=== PATIENT | male | born 1955 | race Caucasian/White ===

== ENCOUNTER 2018-02-13 12:40 | Emergency (ER) | payer OTHER ==
[~2018-02-13] VITALS: Ht 170.2 cm; Wt 56.7 kg
[2018-02-13 13:40] VITALS: BP 128/72
== END 2018-02-13 15:10 | disposition home or self-care (01) ==
LOC: ER 12:40
DX: K64.4 Residual hemorrhoidal skin tags (principal); F17.210 Nicotine dependence, cigarettes, uncomplicated

== ENCOUNTER 2018-08-30 17:53 | Emergency (ER) | payer SELFPAY ==
[~2018-08-30] VITALS: Ht 170.2 cm; Wt 61.2 kg
[2018-08-30 18:24] LABS: Basophils # (auto) 0.1 uL; Eosinophils # (auto) 0 uL; Eosinophils % (auto) 0.1 % (0.0-7.0); Monocytes # (auto) 0.6 uL; Neutrophils # (auto) 5.2 uL; Nucleated Red Blood Cells % 0.1 %; Red Cell Distribution Width 13.8 % (11.8-14.3); White Blood Cell 6.9 10^3/uL (4.4-10.8)
[2018-08-30 18:28] LABS: Basophils % (auto) 1.2 % (0.0-2.0); Hematocrit 46.6 % (41.0-53.0); Hemoglobin 16.1 g/dL (13.5-17.5); Lymphocytes % (auto) 15.1 % (10.0-50.0); Mean Corpuscular Hemoglobin 35.4 pg (28.0-32.0); Mean Corpuscular Hgb Conc. 34.6 g/dL (32.0-36.0); Mean Corpuscular Volume 102.5 fL (80.0-100.0); Monocytes % (auto) 8.1 % (0.0-12.0); Neutrophils % (auto) 75.5 % (37.0-80.0); Platelet Count (auto) 263 10^3/uL (140-450); Red Blood Cells 4.55 10^6/uL (4.5-5.90)
[2018-08-30 18:42] LABS: Chloride 100 mmol/L (98-107); Potassium 4.3 mmol/L (3.5-5.1); Sodium 136 mmol/L (136-145)
[2018-08-30 18:45] LABS: Alanine Aminotransferase 41 U/L (16-61); Albumin 4.1 g/dL (3.4-5.0); Anion Gap 17 (5-15); Aspartate Aminotransferase 50 U/L (15-37); BUN/Creatinine Ratio 13.6; Blood Urea Nitrogen 12 mg/dL (7-18); Calcium 8.4 mg/dL (8.5-10.1); Carbon Dioxide 19 mmol/L (21-32); GFR African American 113 mL/min; GFR Non-African American 94 mL/min; Glucose 92 mg/dL (74-106); Magnesium 2.3 mg/dL (1.6-2.6)
[2018-08-30 18:51] LABS: Alkaline Phosphatase 58 U/L (45-117); Bilirubin, Total 1.1 mg/dL (0.2-1.0); Total Protein 7.7 g/dL (6.4-8.2)
[2018-08-30] MEDS ORDERED: ONDANSETRON HCL 4 MG/2 ML VIAL IV ONE (23:15)
[2018-08-30] MEDS ORDERED: SODIUM CHLORIDE 0.9% 1,000 ML IV ONE (23:15)
[2018-08-31 03:01] VITALS: BP 130/67
[2018-08-31 03:36] LABS: Alcohol, Urine < 3.0 mg/dL (0-5); Amphetamine Screen, Urine NEGATIVE (NEGATIVE); Barbiturate Scree,Urine NEGATIVE (NEGATIVE); Benzodiazephine Screen, Urine NEGATIVE (NEGATIVE); Cannabinoid Screen, Urine NEGATIVE (NEGATIVE); Cocaine Screen, Urine NEGATIVE (NEGATIVE); Opiate Scree,Urine NEGATIVE (NEGATIVE); Phencyclidine Screen, Urine NEGATIVE (NEGATIVE)
[2018-08-31 03:40] LABS: Urine Bacteria FEW /hpf (None Seen); Urine Blood Negative /uL (Negative); Urine Hyaline Cast FEW /lpf (0 - 2); Urine Mucus FEW (None Seen); Urine Specific Gravity 1.029 (1.001-1.035); Urine WBC 1 /hpf (0 - 3)
== END 2018-08-31 04:20 | disposition home or self-care (01) ==
LOC: ER 17:53
DX: K29.00 Acute gastritis without bleeding (principal); F17.210 Nicotine dependence, cigarettes, uncomplicated
CPT/HCPCS: 36415; 74176; 80053; 80307; 81001; 83690; 83735; 84484; 85025; 93005; 96361; 96374; 99285; J2405; J7030

== ENCOUNTER 2020-03-30 06:52 | Inpatient (IN) | payer MEDICAID, OTHER ==
[~2020-03-30] VITALS: Ht 172.7 cm; Wt 59.5 kg
[2020-03-30] MEDS ORDERED: SODIUM CHLORIDE 0.9% 1,000 ML IV ONE (06:59)
[2020-03-30 07:27] LABS: Eosinophils # (auto) 0 10 ^3/uL (0-0.8); Hemoglobin 16.8 g/dL (13.5-17.5); Lymphocytes # (auto) 0.5 10 ^3/uL (0.4-5.4)
[2020-03-30 07:28] LABS: Basophils # (auto) 0.1 10 ^3/uL (0-0.2); Basophils % (auto) 0.9 % (0.0-2.0); Hematocrit 49.8 % (41.0-53.0); Lymphocytes % (auto) 3.8 % (10.0-50.0); Mean Corpuscular Hemoglobin 36.2 pg (28.0-32.0); Mean Corpuscular Hgb Conc. 33.8 g/dL (32.0-36.0); Mean Corpuscular Volume 107.3 fL (80.0-100.0); Monocytes # (auto) 0.9 10 ^3/uL (0-1.3); Monocytes % (auto) 7.5 % (0.0-12.0); Neutrophils # (auto) 10.8 10 ^3/uL (1.6-8.6); Neutrophils % (auto) 87.8 % (37.0-80.0); Nucleated Red Blood Cells % 0.1 %; Platelet Count (auto) 238 10^3/uL (140-450); Red Blood Cells 4.64 10^6/uL (4.5-5.90); Red Cell Distribution Width 15.1 % (11.8-14.3); White Blood Cell 12.4 10^3/uL (4.4-10.8)
[2020-03-30] MEDS ORDERED: ONDANSETRON HCL 4 MG/2 ML VIAL ONE (07:36)
[2020-03-30] MEDS ORDERED: ONDANSETRON HCL 4 MG/2 ML VIAL IV ONE (07:45)
[2020-03-30 07:48] LABS: Albumin 4.4 g/dL (3.4-5.0); Anion Gap 19 (5-15); Blood Urea Nitrogen 16 mg/dL (7-18); Calcium 9.2 mg/dL (8.5-10.1); Carbon Dioxide 21 mmol/L (21-32); Chloride 97 mmol/L (98-107); Glucose 229 mg/dL (74-106); Potassium 4.1 mmol/L (3.5-5.1); Sodium 137 mmol/L (136-145)
[2020-03-30 07:55] LABS: Alanine Aminotransferase 77 U/L (16-61); Alkaline Phosphatase 73 U/L (45-117); Aspartate Aminotransferase 89 U/L (15-37); BUN/Creatinine Ratio 12.4; Bilirubin, Total 2.9 mg/dL (0.2-1.0); GFR African American 72 mL/min; GFR Non-African American 60 mL/min; Total Protein 8.3 g/dL (6.4-8.2)
[2020-03-30] MEDS ORDERED: MORPHINE SULFATE 4 MG/ML SYR/VIAL IV ONE (08:00)
[2020-03-30] MEDS ORDERED: PANTOPRAZOLE 40 MG/10 ML VIAL INJ IV ONE (08:15)
[2020-03-30] MEDS ORDERED: IOHEXOL 300 MG/ML 100ML BOTTLE IJ ONE (08:57)
[2020-03-30] MEDS ORDERED: cefTRIAXone 1GM/50ML D5W 50 ML IV ONE (09:00)
[2020-03-30] MEDS ORDERED: LORazepam 0.5 MG TAB PO PRN (09:45)
[2020-03-30] MEDS ORDERED: ACETAMINOPHEN 500 MG TAB PO PRN (09:45)
[2020-03-30] MEDS: SODIUM CHLORIDE 0.9% 1,000 ML IV SCH ×2 (09:45→18:10)
[2020-03-30] MEDS ORDERED: ONDANSETRON HCL 4 MG/2 ML VIAL IV PRN (09:45)
[2020-03-30] MEDS ORDERED: MORPHINE SULF INJ 2 MG/ML SYRINGE 1ML IV PRN (09:45)
[2020-03-30] MEDS ORDERED: HYDROcodone-ACET 5/325MG TAB PO PRN (09:45)
[2020-03-30] MEDS ORDERED: ENALAPRILAT 1.25 MG/ML-1ML VIAL IV PRN (10:00)
[2020-03-30] MEDS: NICOTINE 21MG/24 HR TOPICAL PATCH TD SCH (10:00)
[2020-03-30] MEDS: PANTOPRAZOLE 40 MG/10 ML VIAL INJ IV SCH (10:00)
[2020-03-30 11:06] LABS: Urine Bacteria FEW /hpf (None Seen); Urine Blood Negative /uL (Negative); Urine Mucus FEW (None Seen); Urine WBC 1 /hpf (0 - 3)
[2020-03-30 11:13] LABS: Urine Specific Gravity > 1.050 (1.001-1.035)
[2020-03-30] MEDS ORDERED: FOLIC ACID 1 MG, MULTIPLE VITAMIN 10 ML, MAGNESIUM SULF SDV 50% 8 MEQ, THIAMINE INJ 100... INJ SCH ×5 (12:00)
[2020-03-30] MEDS: LORazepam 2MG/ML-1ML VIAL IV PRN ×2 (12:57→21:41)
[2020-03-30 17:16] VITALS: BP 123/70
[2020-03-30 22:00] VITALS: BP 147/70
[2020-03-30] MEDS ORDERED: TEMAZEPAM 15 MG CAP PO ONE (22:45)
[2020-03-31] MEDS: SODIUM CHLORIDE 0.9% 1,000 ML IV SCH ×3 (01:34→17:34)
[2020-03-31 05:00] VITALS: BP 113/71
[2020-03-31 05:43] LABS: Basophils # (auto) 0 10 ^3/uL (0-0.2); Eosinophils # (auto) 0 10 ^3/uL (0-0.8); Lymphocytes # (auto) 1.1 10 ^3/uL (0.4-5.4); Monocytes # (auto) 0.8 10 ^3/uL (0-1.3)
[2020-03-31 05:46] LABS: Basophils % (auto) 0.7 % (0.0-2.0); Eosinophils % (auto) 0.3 % (0.0-7.0); Hematocrit 38.4 % (41.0-53.0); Hemoglobin 13.2 g/dL (13.5-17.5); Lymphocytes % (auto) 16.2 % (10.0-50.0); Mean Corpuscular Hemoglobin 36.7 pg (28.0-32.0); Mean Corpuscular Hgb Conc. 34.4 g/dL (32.0-36.0); Mean Corpuscular Volume 106.5 fL (80.0-100.0); Monocytes % (auto) 11.5 % (0.0-12.0); Neutrophils # (auto) 4.9 10 ^3/uL (1.6-8.6); Neutrophils % (auto) 71.3 % (37.0-80.0); Nucleated Red Blood Cells % 0.1 %; Platelet Count (auto) 158 10^3/uL (140-450); Red Blood Cells 3.61 10^6/uL (4.5-5.90); Red Cell Distribution Width 15.3 % (11.8-14.3); White Blood Cell 6.8 10^3/uL (4.4-10.8)
[2020-03-31 06:04] LABS: Albumin 3.1 g/dL (3.4-5.0); Calcium 7.7 mg/dL (8.5-10.1); Potassium 3.5 mmol/L (3.5-5.1)
[2020-03-31 06:09] LABS: Bilirubin, Total 1.9 mg/dL (0.2-1.0); Total Protein 5.9 g/dL (6.4-8.2)
[2020-03-31 08:00] VITALS: BP 125/78
[2020-03-31 09:00] VITALS: BP 125/78
[2020-03-31] MEDS: cefTRIAXone 1GM/50ML D5W 50 ML IV SCH (09:06)
[2020-03-31] MEDS: PANTOPRAZOLE 40 MG/10 ML VIAL INJ IV SCH (09:06)
[2020-03-31] MEDS: NICOTINE 21MG/24 HR TOPICAL PATCH TD SCH (10:46)
[2020-03-31 11:54] LABS: INR 0.91 (0.9-1.15)
[2020-03-31] MEDS ORDERED: FOLIC ACID 1 MG, MULTIPLE VITAMIN 10 ML, MAGNESIUM SULF SDV 50% 8 MEQ in D5W 5% 1,000 ML INJ SCH (12:00)
[2020-03-31 13:00] VITALS: BP 143/80
[2020-03-31 17:00] VITALS: BP 146/81
[2020-03-31] MEDS: PANTOPRAZOLE 40 MG TAB PO SCH (21:30)
[2020-03-31 22:00] VITALS: BP 149/85
[2020-04-01] MEDS: SODIUM CHLORIDE 0.9% 1,000 ML IV SCH ×2 (01:34→12:00)
[2020-04-01 05:00] VITALS: BP 150/85
[2020-04-01 05:14] LABS: INR 0.93 (0.9-1.15); Partial Thromboplastin Time 27.9 sec (23.64-32.05)
[2020-04-01] MEDS ORDERED: LIDOCAINE VISCOUS 2% 15ML UD ONE (08:34)
[2020-04-01] MEDS ORDERED: diphenhdrAMINE HCL 50 MG/1 ML VL ONE (08:34)
[2020-04-01] MEDS ORDERED: SODIUM CHLORIDE LOCK 10 ML ONE (08:34)
[2020-04-01 09:00] VITALS: BP 151/78
[2020-04-01] MEDS: fentaNYL CITRATE 100 MCG/2 ML VL ONE ×2 (09:55→09:58)
[2020-04-01] MEDS: MIDAZOLAM HCL 5 MG/ML-1ML VIAL ONE ×2 (09:55→09:58)
[2020-04-01] MEDS: NICOTINE 21MG/24 HR TOPICAL PATCH TD SCH (10:00)
[2020-04-01] MEDS: PANTOPRAZOLE 40 MG TAB PO SCH (11:59)
[2020-04-01] MEDS ORDERED: FOLIC ACID 1 MG, MULTIPLE VITAMIN 10 ML, MAGNESIUM SULF SDV 50% 8 MEQ, THIAMINE INJ 100... INJ SCH ×5 (12:00)
[2020-04-01] MEDS: cefTRIAXone 1GM/50ML D5W 50 ML IV SCH (12:00)
[2020-04-01 13:00] VITALS: BP 146/80
[2020-04-01] MEDS ORDERED: PANT40T PO (15:23)
[2020-04-01] MEDS ORDERED: METR500T PO (15:24)
[2020-04-01] MEDS ORDERED: AMLO10TA13 PO (15:24)
[2020-04-01] MEDS ORDERED: LOSA25TA38 PO (15:25)
[2020-04-01] MEDS ORDERED: LEVO500T21 PO (15:27)
[2020-04-01 16:24] VITALS: BP 151/74
== END 2020-04-01 17:30 | disposition home or self-care (01) | DRG 249 ==
LOC: ER 06:52 → OVERFLOW 06:53 → WEST WING 15:25
PROVIDERS: ADMIT Nurse Practitioner Acute Care; ATTEND Internal Medicine Nephrology
PROC: 0DB68ZX Excision of Stomach, Via Natural or Artificial Opening Endoscopic, Diagnostic (ICD-10-PCS; principal; 2020-04-01 09:51)
DX: K52.9 Noninfective gastroenteritis and colitis, unspecified (principal); N30.00 Acute cystitis without hematuria; K76.0 Fatty (change of) liver, not elsewhere classified; R65.10 Systemic inflammatory response syndrome (SIRS) of non-infectious origin without acute organ dysfunction; K29.70 Gastritis, unspecified, without bleeding; K29.80 Duodenitis without bleeding; K20.9 Esophagitis, unspecified; D72.829 Elevated white blood cell count, unspecified; E86.0 Dehydration; K44.9 Diaphragmatic hernia without obstruction or gangrene; F10.239 Alcohol dependence with withdrawal, unspecified; I25.10 Atherosclerotic heart disease of native coronary artery without angina pectoris; K46.9 Unspecified abdominal hernia without obstruction or gangrene; I10 Essential (primary) hypertension; F17.210 Nicotine dependence, cigarettes, uncomplicated; Z87.11 Personal history of peptic ulcer disease; Z82.0 Family history of epilepsy and other diseases of the nervous system
CPT/HCPCS: 36415; 71045; 71260; 74176; 80053; 81001; 83036; 83735; 84484; 85025; 85610; 85730; 86850; 86900; 86901; 87040; 87086; 96361; 96365; 96366; 96375; 99291; C9113; G0378; J0696; J2250; J2405

== ENCOUNTER 2020-08-26 08:49 | Inpatient (IN) | payer SELFPAY ==
[~2020-08-26] VITALS: Ht 172.7 cm; Wt 63.5 kg
[~2020-08-26 08:49] MED LIST: LEVO500T21 PO; METR500T PO; PANT40T PO
[2020-08-26 09:36] LABS: Basophils # (auto) 0.1 10 ^3/uL (0-0.2); Monocytes # (auto) 0.5 10 ^3/uL (0-1.3)
[2020-08-26 09:38] LABS: Eosinophils # (auto) 0.1 10 ^3/uL (0-0.8); Eosinophils % (auto) 0.9 % (0.0-7.0); Hematocrit 42.9 % (41.0-53.0); Hemoglobin 14.3 g/dL (13.5-17.5); Lymphocytes # (auto) 1.3 10 ^3/uL (0.4-5.4); Lymphocytes % (auto) 19.2 % (10.0-50.0); Mean Corpuscular Hemoglobin 38.4 pg (28.0-32.0); Mean Corpuscular Hgb Conc. 33.4 g/dL (32.0-36.0); Mean Corpuscular Volume 114.8 fL (80.0-100.0); Monocytes % (auto) 7.3 % (0.0-12.0); Neutrophils # (auto) 4.7 10 ^3/uL (1.6-8.6); Neutrophils % (auto) 71.6 % (37.0-80.0); Platelet Count (auto) 208 10^3/uL (140-450); Red Blood Cells 3.74 10^6/uL (4.5-5.90); White Blood Cell 6.6 10^3/uL (4.4-10.8)
[2020-08-26 09:57] LABS: Alanine Aminotransferase 88 U/L (16-61); Albumin 3.4 g/dL (3.4-5.0); Anion Gap 15 (5-15); Aspartate Aminotransferase 113 U/L (15-37); BUN/Creatinine Ratio 9.3; Blood Urea Nitrogen 8 mg/dL (7-18); Calcium 8.2 mg/dL (8.5-10.1); Carbon Dioxide 23 mmol/L (21-32); Chloride 104 mmol/L (98-107); GFR African American 116 mL/min; GFR Non-African American 95 mL/min; Glucose 94 mg/dL (74-106); Potassium 3.1 mmol/L (3.5-5.1); Sodium 142 mmol/L (136-145)
[2020-08-26 10:02] LABS: Alkaline Phosphatase 105 U/L (45-117); Bilirubin, Total 1.6 mg/dL (0.2-1.0); Total Protein 6.2 g/dL (6.4-8.2)
[2020-08-26] MEDS ORDERED: SODIUM CHLORIDE 0.9% 1,000 ML IV ONE ×4 (10:15→11:45)
[2020-08-26] MEDS ORDERED: PROMETHAZINE HCL 25 MG/ML 1ML IV ONE (10:15)
[2020-08-26] MEDS ORDERED: MORPHINE SULFATE 4 MG/ML SYR/VIAL IV ONE (10:15)
[2020-08-26] MEDS ORDERED: METOPROLOL TARTRATE 1MG/1ML-5ML VIAL IV ONE ×2 (10:37→10:45)
[2020-08-26] MEDS ORDERED: POTASSIUM EFFERVESENT TAB 25 MEQ PO ONE (11:30)
[2020-08-26] MEDS ORDERED: AMIODARONE HCL 150 MG in D5W 5% 100 ML IV ONE (12:30)
[2020-08-26] MEDS ORDERED: NITROGLYCERIN 0.4 MG SL TAB SL PRN (12:30)
[2020-08-26] MEDS ORDERED: MORPHINE SULF INJ 2 MG/ML SYRINGE 1ML IV PRN (12:30)
[2020-08-26] MEDS ORDERED: AMIODARONE 450mg/250ml AE 250 ML IV ONE (13:00)
[2020-08-26] MEDS ORDERED: THIAMINE 100mg/ml INJ (200mg/2ml VIAL) IV ONE (13:30)
[2020-08-26] MEDS ORDERED: SODIUM CHLORIDE 0.9% 1,000 ML IV SCH (13:30)
[2020-08-26 14:55] LABS: CRP High Sensitivity 0.47 mg/dL (< 0.3)
[2020-08-26] MEDS ORDERED: METOPROLOL TARTRATE 25 MG TAB PO ONE (16:00)
[2020-08-26 16:33] LABS: Amylase 28 U/L (25-115); Lipase 54 U/L (73-393)
[2020-08-26] MEDS: chlordiazePOXIDE HCL 5 MG CAP PO SCH (16:40)
[2020-08-26] MEDS ORDERED: IOHEXOL 350 MG/ML 100ML IJ ONE (17:27)
[2020-08-26] MEDS ORDERED: HYOSCYAMINE SULF 0.125 MG ODT TAB PO PRN (17:30)
[2020-08-26] MEDS: CEFTRIAXONE SODIUM 2 GM in D5W 5% 50 ML IV SCH (17:30)
[2020-08-26] MEDS: DIGOXIN (250MCG/ML) 2 ML AMPULE IV SCH ×2 (17:45→23:33)
[2020-08-26] MEDS ORDERED: ONDANSETRON HCL 4 MG/2 ML VIAL IV ONE (17:45)
[2020-08-26] MEDS: dilTIAZem 125mg/125ml BAG KIT 125 ML IV SCH (17:45)
[2020-08-26] MEDS ORDERED: dilTIAZem 25 MG/5 ML VIAL IV ONE ×2 (17:45)
[2020-08-26] MEDS ORDERED: cefTRIAXone 1GM/50ML D5W 100 ML IV ONE (17:58)
[2020-08-26] MEDS ORDERED: AMIODARONE 450mg/250ml AE 250 ML IV SCH (19:00)
[2020-08-26] MEDS: metroNIDAZOLE 500MG/100ML 100 ML IV SCH (19:26)
[2020-08-26] MEDS: MORPHINE SULF INJ 2 MG/ML SYRINGE 1ML IV PRN (20:56)
[2020-08-26] MEDS: PROMETHAZINE HCL 25 MG/ML 1ML IV PRN (20:56)
[2020-08-26] MEDS ORDERED: METOPROLOL TARTRATE 25 MG TAB PO SCH (22:00)
[2020-08-26] MEDS: ENOXAPARIN SOD 80 MG/0.8ML SYRINGE SC SCH (22:16)
[2020-08-26] MEDS: PANTOPRAZOLE 40 MG TAB PO SCH (22:16)
[2020-08-27] VITALS (80 sets, daily range): BP systolic 86–158; BP diastolic 46–99
[2020-08-27] MEDS: chlordiazePOXIDE HCL 5 MG CAP PO SCH ×4 (00:05→17:18)
[2020-08-27] MEDS: NITROGLYCERIN 2% OINT 1GM PKG TD SCH ×8 (03:15→23:15)
[2020-08-27 04:12] LABS: Eosinophils # (auto) 0 10 ^3/uL (0-0.8); Lymphocytes # (auto) 0.8 10 ^3/uL (0.4-5.4); Monocytes # (auto) 0.6 10 ^3/uL (0-1.3); Nucleated Red Blood Cells % 0.1 %
[2020-08-27 04:16] LABS: Basophils # (auto) 0.1 10 ^3/uL (0-0.2); Basophils % (auto) 1.2 % (0.0-2.0); Eosinophils % (auto) 0.2 % (0.0-7.0); Hematocrit 39.3 % (41.0-53.0); Hemoglobin 13.2 g/dL (13.5-17.5); Lymphocytes % (auto) 17.1 % (10.0-50.0); Mean Corpuscular Hemoglobin 38.2 pg (28.0-32.0); Mean Corpuscular Hgb Conc. 33.6 g/dL (32.0-36.0); Mean Corpuscular Volume 113.5 fL (80.0-100.0); Neutrophils # (auto) 3.2 10 ^3/uL (1.6-8.6); Neutrophils % (auto) 69.5 % (37.0-80.0); Platelet Count (auto) 169 10^3/uL (140-450); Red Blood Cells 3.46 10^6/uL (4.5-5.90); Red Cell Distribution Width 13.8 % (11.8-14.3); White Blood Cell 4.7 10^3/uL (4.4-10.8)
[2020-08-27 04:52] LABS: Calcium 7.4 mg/dL (8.5-10.1); Potassium 3.6 mmol/L (3.5-5.1)
[2020-08-27 04:55] LABS: BUN/Creatinine Ratio 14.1; Bilirubin, Total 1.9 mg/dL (0.2-1.0); Total Protein 5.5 g/dL (6.4-8.2)
[2020-08-27 05:06] LABS: Cholesterol 166 mg/dL (< 200); HDL Cholesterol 95 mg/dL (40-59); LDL Cholesterol 64 mg/dL (< 100); Triglycerides 93 mg/dL (< 150)
[2020-08-27] MEDS: metroNIDAZOLE 500MG/100ML 100 ML IV SCH ×3 (06:05→22:16)
[2020-08-27] MEDS: DIGOXIN (250MCG/ML) 2 ML AMPULE IV SCH (06:06)
[2020-08-27] MEDS: MORPHINE SULF INJ 2 MG/ML SYRINGE 1ML IV PRN ×3 (06:21→19:51)
[2020-08-27] MEDS: ASPirin 81 mg TAB PO SCH (09:34)
[2020-08-27] MEDS: ENOXAPARIN SOD 80 MG/0.8ML SYRINGE SC SCH ×2 (09:34→22:21)
[2020-08-27] MEDS: THIAMINE 100mg/ml INJ (200mg/2ml VIAL) IV SCH (09:35)
[2020-08-27] MEDS: PANTOPRAZOLE 40 MG TAB PO SCH ×2 (09:35→23:21)
[2020-08-27] MEDS: DIGOXIN 0.125 MG TAB PO SCH (09:35)
[2020-08-27] MEDS: CEFTRIAXONE SODIUM 2 GM in D5W 5% 50 ML IV SCH (09:54)
[2020-08-27] MEDS ORDERED: dilTIAZem HCL 180MG ER CAP PO SCH (10:00)
[2020-08-27] MEDS ORDERED: PANTOPRAZOLE 40 MG TAB PO SCH (10:00)
[2020-08-27] MEDS: dilTIAZem 125mg/125ml BAG KIT 125 ML IV SCH ×2 (14:22→21:52)
[2020-08-27] MEDS ORDERED: AMIODARONE HCL 200 MG TAB PO ONE (15:00)
[2020-08-27] MEDS ORDERED: DIGOXIN (250MCG/ML) 2 ML AMPULE IV ONE (15:00)
[2020-08-27] MEDS ORDERED: dilTIAZem HCL 180MG ER CAP PO ONE (15:00)
[2020-08-27] MEDS ORDERED: FUROSEMIDE 20 MG/2 ML VIAL IV ONE (18:45)
[2020-08-27] MEDS: PROMETHAZINE HCL 25 MG/ML 1ML IV PRN (22:26)
[2020-08-27] MEDS: VANCOMYCIN HCL 125MG/5ML ORAL SOL PO SCH (23:21)
[2020-08-28] VITALS (24 sets, daily range): BP systolic 13–141; BP diastolic 55–87
[2020-08-28] MEDS: MORPHINE SULF INJ 2 MG/ML SYRINGE 1ML IV PRN ×2 (00:13→05:31)
[2020-08-28] MEDS: NITROGLYCERIN 2% OINT 1GM PKG TD SCH ×6 (03:15→23:15)
[2020-08-28 04:28] LABS: Basophils # (auto) 0 10 ^3/uL (0-0.2); Eosinophils # (auto) 0 10 ^3/uL (0-0.8); Eosinophils % (auto) 0.1 % (0.0-7.0); Monocytes # (auto) 0.7 10 ^3/uL (0-1.3); Nucleated Red Blood Cells % 0.1 %; Platelet Count (auto) 171 10^3/uL (140-450)
[2020-08-28 04:32] LABS: Basophils % (auto) 0.7 % (0.0-2.0); Hematocrit 41.9 % (41.0-53.0); Hemoglobin 14.4 g/dL (13.5-17.5); Lymphocytes # (auto) 0.9 10 ^3/uL (0.4-5.4); Mean Corpuscular Hemoglobin 38.6 pg (28.0-32.0); Mean Corpuscular Hgb Conc. 34.5 g/dL (32.0-36.0); Monocytes % (auto) 11.7 % (0.0-12.0); Neutrophils # (auto) 4.2 10 ^3/uL (1.6-8.6); Neutrophils % (auto) 71.5 % (37.0-80.0); Red Blood Cells 3.74 10^6/uL (4.5-5.90); Red Cell Distribution Width 13.9 % (11.8-14.3); White Blood Cell 5.8 10^3/uL (4.4-10.8)
[2020-08-28 04:51] LABS: Potassium 3.4 mmol/L (3.5-5.1)
[2020-08-28 04:55] LABS: Albumin 3.1 g/dL (3.4-5.0); Calcium 8.3 mg/dL (8.5-10.1)
[2020-08-28 05:03] LABS: Bilirubin, Total 1.8 mg/dL (0.2-1.0); Total Protein 6.4 g/dL (6.4-8.2)
[2020-08-28] MEDS: PROMETHAZINE HCL 25 MG/ML 1ML IV PRN (05:36)
[2020-08-28] MEDS: metroNIDAZOLE 500MG/100ML 100 ML IV SCH (05:38)
[2020-08-28] MEDS: chlordiazePOXIDE HCL 5 MG CAP PO SCH ×5 (05:40→21:45)
[2020-08-28] MEDS: VANCOMYCIN HCL 125MG/5ML ORAL SOL PO SCH ×4 (05:42→21:31)
[2020-08-28] MEDS: THIAMINE 100mg/ml INJ (200mg/2ml VIAL) IV SCH (09:20)
[2020-08-28] MEDS: CEFTRIAXONE SODIUM 2 GM in D5W 5% 50 ML IV SCH (09:20)
[2020-08-28] MEDS: PANTOPRAZOLE 40 MG TAB PO SCH (09:21)
[2020-08-28] MEDS: ASPirin 81 mg TAB PO SCH (09:21)
[2020-08-28] MEDS: AMIODARONE HCL 200 MG TAB PO SCH ×2 (09:21→21:27)
[2020-08-28] MEDS: DIGOXIN 0.125 MG TAB PO SCH (09:21)
[2020-08-28] MEDS: dilTIAZem 120MG ER CAP PO SCH (09:22)
[2020-08-28] MEDS: ENOXAPARIN SOD 80 MG/0.8ML SYRINGE SC SCH ×2 (09:22→21:26)
[2020-08-28] MEDS: FUROSEMIDE 20 MG/2 ML VIAL IV SCH (10:00)
[2020-08-28] MEDS: traMADol HCL 50 MG TAB PO PRN ×2 (12:43→21:27)
[2020-08-28] MEDS ORDERED: POTASSIUM CHL 20 Meq TABLET PO ONE (15:15)
[2020-08-28] MEDS: metroNIDAZOLE 500 MG TAB PO SCH ×2 (15:43→21:27)
[2020-08-28] MEDS: chlordiazePOXIDE HCL 25 MG CAP PO PRN (21:27)
[2020-08-29] MEDS: NITROGLYCERIN 2% OINT 1GM PKG TD SCH (03:15)
[2020-08-29 05:02] VITALS: BP 126/66
[2020-08-29] MEDS: metroNIDAZOLE 500 MG TAB PO SCH ×3 (05:34→22:02)
[2020-08-29] MEDS: chlordiazePOXIDE HCL 25 MG CAP PO PRN ×2 (05:34→05:35)
[2020-08-29] MEDS: VANCOMYCIN HCL 125MG/5ML ORAL SOL PO SCH ×4 (05:35→22:03)
[2020-08-29] MEDS: chlordiazePOXIDE HCL 5 MG CAP PO SCH ×4 (06:02→23:34)
[2020-08-29 09:00] VITALS: BP 142/62
[2020-08-29] MEDS: NICOTINE 21MG/24 HR TOPICAL PATCH TD SCH (10:00)
[2020-08-29] MEDS: ASPirin 81 mg TAB PO SCH (10:21)
[2020-08-29] MEDS: DIGOXIN 0.125 MG TAB PO SCH (10:22)
[2020-08-29] MEDS: dilTIAZem 120MG ER CAP PO SCH (10:22)
[2020-08-29] MEDS: AMIODARONE HCL 200 MG TAB PO SCH ×2 (10:23→22:02)
[2020-08-29] MEDS: FUROSEMIDE 20 MG/2 ML VIAL IV SCH (10:23)
[2020-08-29] MEDS: ENOXAPARIN SOD 60 MG/0.6 ML SYRINGE SC SCH ×2 (11:30→22:03)
[2020-08-29 13:00] VITALS: BP 122/68
[2020-08-29] MEDS ORDERED: POTASSIUM EFFERVESENT TAB 25 MEQ PO ONE (15:00)
[2020-08-29 16:55] VITALS: BP 125/67
[2020-08-29 22:00] VITALS: BP 135/73
[2020-08-30 05:00] VITALS: BP 121/75
[2020-08-30] MEDS: chlordiazePOXIDE HCL 5 MG CAP PO SCH ×3 (05:26→18:19)
[2020-08-30] MEDS: metroNIDAZOLE 500 MG TAB PO SCH ×3 (05:27→21:34)
[2020-08-30] MEDS: VANCOMYCIN HCL 125MG/5ML ORAL SOL PO SCH ×4 (05:27→21:35)
[2020-08-30 06:21] LABS: Basophils # (auto) 0.1 10 ^3/uL (0-0.2); Monocytes # (auto) 0.5 10 ^3/uL (0-1.3); Nucleated Red Blood Cells % 0.1 %; White Blood Cell 4.1 10^3/uL (4.4-10.8)
[2020-08-30 06:30] LABS: Basophils % (auto) 1.2 % (0.0-2.0); Eosinophils # (auto) 0.1 10 ^3/uL (0-0.8); Eosinophils % (auto) 1.3 % (0.0-7.0); Hematocrit 40.7 % (41.0-53.0); Hemoglobin 13.9 g/dL (13.5-17.5); Lymphocytes % (auto) 24.2 % (10.0-50.0); Mean Corpuscular Hemoglobin 38.5 pg (28.0-32.0); Mean Corpuscular Hgb Conc. 34.1 g/dL (32.0-36.0); Monocytes % (auto) 12.2 % (0.0-12.0); Neutrophils # (auto) 2.5 10 ^3/uL (1.6-8.6); Neutrophils % (auto) 61.1 % (37.0-80.0); Platelet Count (auto) 159 10^3/uL (140-450); Red Blood Cells 3.61 10^6/uL (4.5-5.90); Red Cell Distribution Width 13.7 % (11.8-14.3)
[2020-08-30 06:31] LABS: Potassium 3.3 mmol/L (3.5-5.1)
[2020-08-30 06:54] LABS: BUN/Creatinine Ratio 14.5; Calcium 8.1 mg/dL (8.5-10.1)
[2020-08-30 08:56] VITALS: BP 134/72
[2020-08-30] MEDS: AMIODARONE HCL 200 MG TAB PO SCH ×2 (09:05→21:34)
[2020-08-30] MEDS: ASPirin 81 mg TAB PO SCH (09:06)
[2020-08-30] MEDS: dilTIAZem 120MG ER CAP PO SCH (09:06)
[2020-08-30] MEDS: POTASSIUM EFFERVESENT TAB 25 MEQ PO SCH (09:06)
[2020-08-30] MEDS: ENOXAPARIN SOD 60 MG/0.6 ML SYRINGE SC SCH ×2 (09:07→21:35)
[2020-08-30] MEDS: FUROSEMIDE 20 MG/2 ML VIAL IV SCH (09:07)
[2020-08-30] MEDS: NICOTINE 21MG/24 HR TOPICAL PATCH TD SCH (09:07)
[2020-08-30] MEDS: chlordiazePOXIDE HCL 25 MG CAP PO PRN (12:07)
[2020-08-30] MEDS ORDERED: POTASSIUM EFFERVESENT TAB 25 MEQ PO ONE (12:30)
[2020-08-30 13:00] VITALS: BP 115/81
[2020-08-30 16:29] VITALS: BP 124/78
[2020-08-30 22:00] VITALS: BP 133/94
[2020-08-31 05:00] VITALS: BP 135/75
[2020-08-31] MEDS: VANCOMYCIN HCL 125MG/5ML ORAL SOL PO SCH ×2 (05:32→12:08)
[2020-08-31] MEDS: chlordiazePOXIDE HCL 5 MG CAP PO SCH ×3 (05:32→12:08)
[2020-08-31] MEDS: metroNIDAZOLE 500 MG TAB PO SCH ×2 (05:32→14:28)
[2020-08-31 07:37] LABS: White Blood Cell 4.1 10^3/uL (4.4-10.8)
[2020-08-31 07:38] LABS: Hematocrit 45.8 % (41.0-53.0); Hemoglobin 15.7 g/dL (13.5-17.5); Mean Corpuscular Hemoglobin 38.1 pg (28.0-32.0); Mean Corpuscular Hgb Conc. 34.2 g/dL (32.0-36.0); Mean Corpuscular Volume 111.5 fL (80.0-100.0); Platelet Count (auto) 196 10^3/uL (140-450); Red Blood Cells 4.11 10^6/uL (4.5-5.90); Red Cell Distribution Width 13.7 % (11.8-14.3)
[2020-08-31 07:42] LABS: Band Neutrophils % (manual) 0; Basophils % (manual) 0 (0.0-2.0); Blast Cells 0; Eosinophils % (manual) 0 (0-7); Metamyelocytes % 0; Myelocytes % 0; Promyelocytes % 0; Reactive Lymphocytes 0
[2020-08-31 07:47] LABS: BUN/Creatinine Ratio 12.1; Calcium 8.9 mg/dL (8.5-10.1); Potassium 3.9 mmol/L (3.5-5.1)
[2020-08-31 08:00] LABS: Lymphocytes % (manual) 29 (10.0-50.0); Monocytes % (manual) 11 (0-12)
[2020-08-31] MEDS: FUROSEMIDE 20 MG/2 ML VIAL IV SCH (08:34)
[2020-08-31] MEDS: ENOXAPARIN SOD 60 MG/0.6 ML SYRINGE SC SCH (08:34)
[2020-08-31] MEDS: AMIODARONE HCL 200 MG TAB PO SCH (08:35)
[2020-08-31] MEDS: dilTIAZem 120MG ER CAP PO SCH (08:35)
[2020-08-31] MEDS: POTASSIUM EFFERVESENT TAB 25 MEQ PO SCH (08:35)
[2020-08-31] MEDS: ASPirin 81 mg TAB PO SCH (08:35)
[2020-08-31] MEDS: NICOTINE 21MG/24 HR TOPICAL PATCH TD SCH (08:35)
[2020-08-31 08:44] VITALS: BP 135/75
[2020-08-31] MEDS ORDERED: VANC125PO PO (10:28)
[2020-08-31] MEDS ORDERED: DILT120C12 PO (10:28)
[2020-08-31] MEDS ORDERED: ASPI81CH43 PO (10:28)
[2020-08-31] MEDS ORDERED: FURO1TAB33 PO (10:35)
[2020-08-31] MEDS ORDERED: POTA25TA PO (10:35)
[2020-08-31 12:47] VITALS: BP 122/69
[2020-08-31 13:25] VITALS: BP 122/69
== END 2020-08-31 14:47 | disposition home or self-care (01) | DRG 371 ==
LOC: EDBD 08:49 → ER 08:49 → OVERFLOW 08:50 → ICU WEST 23:39 → TELE-CENTR 08-28 06:08
PROVIDERS: ADMIT Internal Medicine; ATTEND Internal Medicine Pulmonary Disease
DX: A04.72 Enterocolitis due to Clostridium difficile, not specified as recurrent (principal); J96.01 Acute respiratory failure with hypoxia; J90 Pleural effusion, not elsewhere classified; I48.92 Unspecified atrial flutter; J81.1 Chronic pulmonary edema; E86.0 Dehydration; E87.6 Hypokalemia; E87.70 Fluid overload, unspecified; F17.210 Nicotine dependence, cigarettes, uncomplicated; I10 Essential (primary) hypertension; R00.0 Tachycardia, unspecified; I48.91 Unspecified atrial fibrillation
CPT/HCPCS: 36415; 71250; 71275; 74176; 80048; 80053; 80061; 82150; 82550; 83690; 83880; 84443; 84484; 85007; 85025; 85027; 85379; 85652; 86141; 87045; 87081; 87427; 87493; 93005; 93306; 96365; 96367; 96375; G0378; J0696; J3490; J7060